=== PATIENT | female | born 1980 | race Caucasian/White ===

== ENCOUNTER 2023-06-19 16:20 | Emergency (ER) | payer BC, SELFPAY ==
--- NOTE | 2023-06-19 17:30 | DI.US.S_ITS ---
PROCEDURE: US PERIPH VENOUS LOW EXTREM RT INDICATIONS: leg pain TECHNIQUE: Real-time imaging, as well as color and pulse Doppler interrogation, were performed of the lower extremity deep veins from the inguinal ligament to the popliteal fossa, with documentation of the visualized calf veins. COMPARISON: None. FINDINGS: The common femoral, femoral, popliteal, and the visualized calf veins are normally compressible, and free of intraluminal thrombus. Color and pulse Doppler demonstrate normal phasic intraluminal flow. There is normal augmentation response to distal compression maneuver. IMPRESSION: No findings of lower extremity deep venous thrombosis. Dictated by: Rudi Sun M.D. on 06/19/2023 at 20:23 Approved by: Rudi Sun M.D. on 06/19/2023 at 20:24
[2023-06-19 17:32] VITALS: BP 146/92; PULSE 71; RESP 17; TEMP 36.6; O2SAT 100; BMI 23.6
--- NOTE | 2023-06-19 22:01 | ED.EXTPRO ---
HPI - Extremity Problem General Chief complaint: Extremity Problem,Nontraumatic Stated complaint: potential blood clot in hip, sent by [facility] Time Seen by Provider: 06/19/23 21:29 Source: patient Mode of arrival: Ambulatory History of Present Illness HPI Narrative: 43-year-old female with history of DVT on Eliquis presents for in her right hip pain. Patient states that she was on a business trip and has forgotten to take her Eliquis for the last week. She was concerned that she may have developed another DVT and decided to present for evaluation. Related Data Home Medications Medication Instructions Recorded Confirmed apixaban 5 mg tablet (Eliquis) 5 mg PO BID 06/19/23 06/19/23 Previous Rx's Medication Instructions Recorded apixaban 5 mg tablet 5 mg PO BID #60 tabs 06/19/23 Allergies Allergy/AdvReac Type Severity Reaction Status Date / Time amoxicillin [From Augmentin] Allergy Rash Verified 06/19/23 17:35 clavulanic acid Allergy Rash Verified 06/19/23 17:35 [From Augmentin] Review of Systems Review of Systems Narrative: Negative except as noted above Patient History Social History Smoking Status: Never smoker Smoking Status: Never smoker alcohol intake frequency: a few times a week Substance Use Type: does not use Exam Initial Vital Signs Initial Vital Signs: Vital Signs Temperature 98 F 06/19/23 17:32 Pulse Rate 71 06/19/23 17:32 Respiratory Rate 17 06/19/23 17:32 Blood Pressure 146/92 H 06/19/23 17:32 Pulse Oximetry 100 06/19/23 17:32 Oxygen Delivery Method Room Air 06/19/23 17:32 Const: Awake, alert, no acute distress, nontoxic appearing MSK: Atraumatic, full range of motion, pulses equal Skin: Warm, Dry, intact, no rashes Neuro: AO x3, CN II-XII grossly intact, moves all extremities Course Orders Ordered: ED Orders 06/19/23 17:30 US periph venous low extrem rt Stat Vital Signs Vital signs: Vital Signs - 8 hr 06/19/23 22:10 Pulse Rate 68 Respiratory Rate 18 Blood Pressure 129/88 Pulse Oximetry 100 Oxygen Delivery Method Room Air MDM - Extremity (Nontraumatic) Differential Diagnosis Differential diagnosis: Likely superficial thrombophlebitis, deep venous thrombosis of upper extremity and lower extremity edema Imaging Data US - DVT: Radiologist's Impression: PROCEDURE: US PERIPH VENOUS LOW EXTREM RT INDICATIONS: leg pain TECHNIQUE: Real-time imaging, as well as color and pulse Doppler interrogation, were performed of the lower extremity deep veins from the inguinal ligament to the popliteal fossa, with documentation of the visualized calf veins. COMPARISON: None. FINDINGS: The common femoral, femoral, popliteal, and the visualized calf veins are normally compressible, and free of intraluminal thrombus. Color and pulse Doppler demonstrate normal phasic intraluminal flow. There is normal augmentation response to distal compression maneuver. IMPRESSION: No findings of lower extremity deep venous thrombosis. Dictated by: Rudi Sun M.D. on 06/19/2023 at 20:23 Approved by: Rudi Sun M.D. on 06/19/2023 at 20:24 [facility] Narrative Medical decision making narrative: Patient presenting for pain in her right groin. Ultrasound negative for DVT. On my evaluation patient is fully closed, I offered to inspect the area of concern for the patient to assess for any abnormalities such as lymph nodes or other swelling, however patient declined stating that she would prefer to go home and follow up with her primary care doctor when she returns back to [facility]. She states she will keep an eye on her symptoms and will return if anything acutely changes. Patient requested a refill of her Eliquis, which was sent to pharmacy of choice. Discharge Plan Departure Patient Disposition: Home Clinical Impression: Groin pain Qualifiers: Laterality: right Qualified Code(s): R10.31 - Right lower quadrant pain Instructions: DI for Leg Pain Activity Restrictions/Additional Instructions: Your ultrasound was negative for DVT today. Your Eliquis has been sent to the [facility] in [place] Prescriptions: New apixaban 5 mg tablet 5 mg PO BID Qty: 60 0RF No Action Eliquis 5 mg tablet 5 mg PO BID Referrals: Miscellaneous,DoctorMD [Primary Care Provider] - Stand Alone Forms: Patient Portal/API
[2023-06-19 22:10] VITALS: BP 129/88; PULSE 68; RESP 18; O2SAT 100
== END 2023-06-19 22:13 | disposition home or self-care (01) ==
PROVIDERS: Emergency Provider Emergency Medicine
DX: R10.31 Right lower quadrant pain (principal); Z86.718 Personal history of other venous thrombosis and embolism; Z79.01 Long term (current) use of anticoagulants
CPT/HCPCS: 93971; 99281; 99282